=== PATIENT | male | born 1975 ===

== ENCOUNTER → 2021-11-19 08:54 | Outpatient (BNVA) | payer MEDICARE, MEDICAID, SELFPAY | PROVIDERS: PCP Internal Medicine; Visit Provider Psychiatry & Neurology Neurology | DX: R56.9 Unspecified convulsions (principal); G43.909 Migraine, unspecified, not intractable, without status migrainosus; R06.83 Snoring; Z79.899 Other long term (current) drug therapy | CPT/HCPCS: 99212 ==

== ENCOUNTER 2022-12-25 10:31 | Outpatient (AMB) | payer MEDICARE, MEDICAID, SELFPAY ==
--- NOTE | 2022-12-25 10:31 | A.OFFVIS_ITS ---
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 Pt reports that he had a brief episode of seizure in October while he traveled. He left his luggage at hotel and missed his lamotrigine dosage. He had very brief seizure for couple of seconds, and no injured. Pt usually compliant his medications, lomotrigine 400 mg daily, gabapentin 600 mg TID, and topiramate 25 mg BID. He always has occipital headache. His neck pain triggers the headache and uses Aleve which helps for neck pain and headache. He was diagnosed with MICKI lately and CPAP prescribed. He was told that he is getting CPAP within 6 weeks. He has poor sleep hygiene, watches TV up till 4 am. [facility] Medical History Obstructive sleep apnea Snoring Migraine Seizures GERD (gastroesophageal reflux disease) Depression Arthritis Family History Father Chronic mental illness Mother Chronic mental illness Schizophrenia DM (diabetes mellitus) Seizure Family/Other Epilepsy Social History Alcohol intake: never Patient Tobacco Use Status: Never used Tobacco Review of Systems Const All systems reviewed & are unremarkable except as noted in HPI and below ENT Reports Normal hearing present Neuro Reports Normal hearing present Physical Exam Vital Signs: Last Vital Signs Pulse 68 12/25/22 10:35 BP 112/68 12/25/22 10:35 Pulse Ox 98 12/25/22 10:35 Oxygen Delivery Method Room Air 12/25/22 10:35 Const General: cooperative Nutritional Appearance: obese Orientation/consciousness: patient oriented x3 Neck Neck: Yes full ROM and Yes supple Resp Effort & Inspection: normal respiratory effort and able to speak in complete sentences Neuro General: patient oriented x3, gait normal and moves all extremities Cranial nerves: Yes Bilaterally intact EOM present, Yes Normal facial strength present, Yes Midline tongue present, Yes Symmetric palate elevation present, Yes Normal hearing present, Yes Ability to bilaterally rotate head present and Yes Ability to bilaterally elevate shoulders present Cognition (Neuro): normal cognition Gait exam (Neuro): Normal gait present Motor exam (neuro): 5/5 motor strength present throughout, Pronator motor function not present and no tremor noted Psych Appearance: grossly normal Mental Status: mental status grossly normal Speech and movement: Normal speech and movement present Affect: normal affect Attitude: cooperative Assessment & Plan Assessment & Plan (1) Seizures: Code(s): R56.9 - Unspecified convulsions (2) Migraine: Code(s): G43.909 - Migraine, unspecified, not intractable, without status migrainosus (3) Snoring: Comment: has appointment at [facility] for further treatment Code(s): R06.83 - Snoring (4) Obstructive sleep apnea: Code(s): G47.33 - Obstructive sleep apnea (adult) (pediatric) Plan Continue lamictal 200mg 2tabs qhs, gabapentin 600mg tid and topiramte 25mg bid Patient does not drive. Advised patient not to drive. Medication compliance stressed. Requested labs from PCP. Advised patient to start vitamin B2 400 mg q daily. Stressed CPAP compliance, use CPAP nightly and more than 4 hrs. Medications: New riboflavin (vitamin B2) 400 mg PO DAILY 30 days 30 tabs 5RF Coding Level of Care Code Est Pt Level 4 (66521) Diagnoses Seizures R56.9 Migraine G43.909 Snoring R06.83 Obstructive sleep apnea G47.33
[2022-12-25 10:35] VITALS: BP 112/68; PULSE 68; O2SAT 98
== END 2022-12-25 11:05 | disposition home or self-care (01) ==
PROVIDERS: PCP Internal Medicine; Visit Provider Nurse Practitioner Family
DX: R56.9 Unspecified convulsions (principal); G43.909 Migraine, unspecified, not intractable, without status migrainosus; R06.83 Snoring; G47.33 Obstructive sleep apnea (adult) (pediatric)
CPT/HCPCS: 99214

== ENCOUNTER → 2022-12-25 10:31 | Outpatient (BNVA) | payer MEDICARE, MEDICAID, SELFPAY | PROVIDERS: PCP Internal Medicine; Visit Provider Nurse Practitioner Family | DX: R56.9 Unspecified convulsions (principal); G43.909 Migraine, unspecified, not intractable, without status migrainosus; R06.83 Snoring; G47.33 Obstructive sleep apnea (adult) (pediatric); Z79.899 Other long term (current) drug therapy | CPT/HCPCS: 99212 ==